=== PATIENT | male | born 1950 | race Caucasian/White ===

== ENCOUNTER → 2017-02-24 | Outpatient (CLI) | payer OTHER ==
[~2017-02-24] MED LIST: LIDOCAINE 1% (MPF) 5 ML VIAL SC ONE
--- NOTE | 2017-02-24 16:36 | RADRPT ---
PROCEDURE: XR Chest. CLINICAL INDICATION: Check PICC line position. TECHNIQUE: Single frontal view. COMPARISON: No prior study is available for comparison. FINDINGS: There is a right arm PICC line with the tip in the cavoatrial junction. The lungs are clear. The heart size is normal. There is no pleural effusion. There is no pneumothorax. IMPRESSION: 1. Satisfactory position of right arm PICC line. 2. Otherwise normal chest radiograph. RPTAT: QQ .Pankaj Herman MD, MD Date Time Electronically viewed and signed by .Pankaj Herman MD, MD on 02/24/2017 16:36 .R/
--- NOTE | 2017-02-24 19:59 | RADRPT ---
PROCEDURE: Ultrasound guidance for placement of needle in right upper extremity vein. CLINICAL INDICATION: Venous access. TECHNIQUE: Limited sonography of the right upper extremity was performed. Ultrasound images were recorded and stored in the patient's medical record. COMPARISON: None. FINDINGS: The ultrasound images demonstrate a patent right upper extremity vein. The PICC line was inserted b y the PICC line nurse. IMPRESSION: 1. Ultrasound guidance for a needle placement in a right upper extremity vein. 2. The visualized right upper extremity vein is patent. RPTAT: QQ .Pankaj Herman MD, MD Date Time Electronically viewed and signed by .Pankaj Herman MD, MD on 02/24/2017 19:59 .R/
== END | disposition home or self-care (01) ==
LOC: RAD 02-23 13:44
PROVIDERS: ATTEND Internal Medicine Infectious Disease
DX: M86.8X4 Other osteomyelitis, hand (principal)
CPT/HCPCS: 36569; 71010; 76937